=== PATIENT | male | born 1985 | race Caucasian/White ===

== ENCOUNTER 2016-10-23 13:02 | Emergency (ER) | payer OTHER ==
[~2016-10-23] VITALS: Ht 188 cm; Wt 113.4 kg
[~2016-10-23 13:02] MED LIST: BENADRYL25 MG PO; CLEOCIN HCL150 MG PO; DAYPRO600 MG PO; DAYQUIL SEVERE PO; EPIPEN1 EA INJ; EXCEDRIN EXTRA1 EAC1 PO; LACTAID3000 UNIT PO; MELATONIN5 M2 PO; NAPROSYN500 MG PO; PREDNISONE20 MG PO; PROVENTIL HFA6.7 GM INH; SEPTRA DS TABL1 EACH PO; TRAMADOL HCL50 MG PO; TUMS200 MG PO; ZITHROMAX250 MG PO
[2016-10-23] MEDS ORDERED: EPIPEN 2-P0.3 MG/0.3 IM ×2 (13:09→14:54)
== END 2016-10-23 15:04 | disposition home or self-care (01) ==
LOC: ED 13:02
DX: T63.441A Toxic effect of venom of bees, accidental (unintentional), initial encounter (principal); F43.10 Post-traumatic stress disorder, unspecified; F31.9 Bipolar disorder, unspecified; G40.909 Epilepsy, unspecified, not intractable, without status epilepticus; F17.200 Nicotine dependence, unspecified, uncomplicated; Z88.0 Allergy status to penicillin; Z91.018 Allergy to other foods; Z91.012 Allergy to eggs; Z91.030 Bee allergy status; Z79.899 Other long term (current) drug therapy
CPT/HCPCS: 99283

== ENCOUNTER 2020-05-24 10:07 | Emergency (ER) | payer OTHER ==
[~2020-05-24] VITALS: Ht 188 cm; Wt 113.4 kg
[~2020-05-24 10:07] MED LIST changes: +EPIPEN 2-P0.3 MG/0.3 IM; +GLUCOPHAGE500 MG PO; +IBU600 MG PO; +LISINOPRIL10 MG PO; +NORCO 5-325 TA1 EACH PO; +TRAZODONE HCL100 MG PO; +TRAZODONE HCL300 MG PO
[2020-05-24] MEDS ORDERED: METFORMIN HCL500 M1 PO (12:28)
[2020-05-24] MEDS ORDERED: VENTOLIN HFA18 GM INH (12:59)
[2020-05-24] MEDS ORDERED: CEPHALEXIN500 M1 PO (12:59)
== END 2020-05-24 13:27 | disposition home or self-care (01) ==
LOC: ED 10:07
DX: L03.116 Cellulitis of left lower limb (principal); G47.30 Sleep apnea, unspecified; G43.909 Migraine, unspecified, not intractable, without status migrainosus; E11.9 Type 2 diabetes mellitus without complications; F17.200 Nicotine dependence, unspecified, uncomplicated; Z88.0 Allergy status to penicillin; Z91.012 Allergy to eggs; Z88.8 Allergy status to other drugs, medicaments and biological substances; Z91.018 Allergy to other foods; Z91.030 Bee allergy status; Z79.899 Other long term (current) drug therapy; Z79.84 Long term (current) use of oral hypoglycemic drugs
CPT/HCPCS: 73590; 80053; 83036; 83605; 85025; 87070; 87205; 94640; 96365; 99283-25; J0696

== ENCOUNTER 2020-09-07 20:19 | Emergency (ER) | payer OTHER ==
[~2020-09-07] VITALS: Ht 188 cm; Wt 185.1 kg
[~2020-09-07 20:19] MED LIST changes: +CEPHALEXIN500 M1 PO; +METFORMIN HCL500 M1 PO; +VENTOLIN HFA18 GM INH
[2020-09-07] MEDS ORDERED: LISINOPRIL-HCT1 EAC1 PO (20:39)
[2020-09-07] MEDS ORDERED: ALBUTEROL2.5 MG/3 M INH (23:14)
[2020-09-07] MEDS ORDERED: FUROSEMIDE40 MG PO (23:14)
[2020-09-07] MEDS ORDERED: CEPHALEXIN500 MG PO (23:14)
--- NOTE | 2020-09-09 11:31 | EKG ---
[facility] [address] [place] [address] Signed Normal sinus rhythm Left posterior fascicular block Abnormal ECG When compared with ECG of 12-APR-2019 15:00, No significant change was found Confirmed by NATO CARR MD ([id number]) on 09/09/2020 11:31:07 AM Electronically Signed By: NATO CARR MD 09/09/20 1131 PATIENT NAME: WESTON CAZARES Electrocardiogram DATE OF : 83 PHYSICIAN: NATO CARR MD REPORT #: [id number] REPORT IS CONFIDENTIAL AND NOT TO BE RELEASED WITHOUT AUTHORIZATION
== END 2020-09-07 23:40 | disposition home or self-care (01) ==
LOC: ED 20:19
DX: N49.2 Inflammatory disorders of scrotum (principal); J44.9 Chronic obstructive pulmonary disease, unspecified; Z20.822 Contact with and (suspected) exposure to COVID-19; G43.909 Migraine, unspecified, not intractable, without status migrainosus; E11.9 Type 2 diabetes mellitus without complications; G47.30 Sleep apnea, unspecified; F17.200 Nicotine dependence, unspecified, uncomplicated; Z88.0 Allergy status to penicillin; Z88.8 Allergy status to other drugs, medicaments and biological substances; Z91.030 Bee allergy status; Z91.018 Allergy to other foods; Z91.012 Allergy to eggs; Z79.899 Other long term (current) drug therapy; Z79.84 Long term (current) use of oral hypoglycemic drugs
CPT/HCPCS: 36600; 71045; 76870; 80053; 82803; 83880; 85025; 93005; 93010; 94660; 96374; 96375; 99285-25; C9803; J1940; J2405; J2930; U0003

== ENCOUNTER 2020-09-08 22:46 | Inpatient (IN) | payer OTHER ==
[~2020-09-08] VITALS: Ht 188 cm; Wt 184.2 kg
[~2020-09-08 22:46] MED LIST changes: +ALBUTEROL2.5 MG/3 M INH; +CEPHALEXIN500 MG PO; +FUROSEMIDE40 MG PO; +LISINOPRIL-HCT1 EAC1 PO
--- OUTSIDE RECORDS SUMMARY | 2020-09-08 22:52 | XMS ---
PreManage Notification: WESTON CAZARES Security Arborist Climber Events No recent Security Events currently on file CRITERIA MET - [facility] - 2 Visits in 30 Days CARE PROVIDERS There are no care providers on record at this time. Ajay has no Care Guidelines for this patient. [place] VISIT COUNT (12 MO[address] [facility] T[facility] NOTE: Visits indicate total known visits. ED/C VISIT TRACKING (12 MO.) [facility] COMPLAINT: - SWOLLEN SCROTUM, SHORTNESS OF BREATH 09/07/2020 20:21 [facility] [place] TYPE: Emergency COMPLAINT: - SWOLLEN SCROTUM 05/24/2020 10:08 [facility] [place] TYPE: Emergency COMPLAINT: - L LEG WOUND DIAGNOSES: - Allergy status to other drugs, medicaments and biological substances - Bee allergy status - buttermaker (current) use of oral hypoglycemic drugs - Type 2 diabetes mellitus without complications - Allergy to other foods - Other terminal gauger (current) drug therapy - Sleep apnea, unspecified - Cellulitis of left lower limb - Nicotine dependence, unspecified, uncomplicated - Allergy status to penicillin - Allergy to eggs - Migraine, unspecified, not intractable, without status migrainosus INPATIENT VISIT TRACKING (12 MO.) No inpatient visits to display in this time frame [email or web address]
--- NOTE | 2020-09-09 03:00 | NUR ---
PATIENT ARRIVED TO THE UNIT. PATIENT OBTUNDED, UNABLE TO WAKE TO MOVE TO BED. ON BIPAP. MOVED WITH 4 PERSON ASSIST. PATIENT WOKE AND REQUIRED THE URNAL. ASSISTED PATIENT TO EDGE OF BED AND PATIENT STOOD WHILE RN HELD URNAL. PATIENT VOIDED 800MLS. PATIENT RETURNED TO BED. HEAVY BREATHING AND DIFFICULTY SPEAKING. PLACED BACK ON BIPAP. PATIENT WROTE ON PAPER REQUESTING HIS GIRLFRIEND BE UPDATED. PATIENT IN BED, HOB ELEVATED. ON BIPAP 20/12 WITH 50% Fi02. REQUIRED INCREASED TO 60% Fi02 TO MAINTAIN O2 SAT GREATER OF 90%. PATIENT HAS DIMINISHED BREATH SOUNDS THROUGHOUT AND A DRY COUGH. IV ABX STARTED PER ORDER, SITE WNL.
--- NOTE | 2020-09-09 04:30 | NUR ---
DRESSING ON RIGHT LOWER LEG IS HEAVILY SOILED. REMOVED DRESSING. LOOSE SKIN, DIRT AND DRAINAGE NOTED OVER MOST OF THE LOWER LEG. AREAS CLEANED WELL WITH SOAP AND WATER THEN WOUND SUPERVISOR FRUIT GRADING. PICTURES TAKEN. XEROFORM GAUZED PLACED OVER OPEN AREAS. WRAPPED LOWER LEG IN GAUZE AND MILES WRAP. LEFT LOVER LEG HAS OLD SCARRING AND SCABS, NOTHING OPEN. AREA CLEANED WELL. LOTION APPLIED. BOTH FEET HAVE EXTENSIVE CALLUSES AND DRY CRACKED SKIN. BOTH LEGS ELEVATED ON PILLOWS. PATIENT TOLERATING BIPAP. WAKES BRIEFLY TO USE URNAL. VOIDS 900 MLS.
--- NOTE | 2020-09-09 06:30 | NUR ---
PATIENT AWAKE. UP TO THE BEDSIDE. PATIENT REQUIRES REORIENTATION BUT IS ALERT. PATIENT HAS A CONGESTED SOUNDING COUGH AND HAS TROUBLE CATCHING HIS BREATH ON 4L NC. PATIENT HAS MANY QUESTIONS ABOUT HIS ADMISSION, ANSWERED TO BEST OF ABILITY AND REFERED QUESTIONS TO MD WHEN HE ROUNDS. PATIENT UP TO THE BATHROOM TO VOID. TOLERATES AMBULATING WITH O2 IN PLACE. PATIENT SITTING BACK AT BEDSIDE LOOKING AT BREAKFAST ORDER.
[2020-09-09] MEDS ORDERED: CEPHALEXIN500 MG PO (07:15)
[2020-09-09] MEDS ORDERED: PREDNISONE20 MG PO (07:19)
[2020-09-09] MEDS ORDERED: MOBIC7.5 MG PO (07:22)
--- NOTE | 2020-09-09 07:30 | NUR ---
REPORT RECIEVED. PATIENT IS SITTING AT BEDSIDE.
--- NOTE | 2020-09-09 08:00 | NUR ---
ASSESSMENT DONE. TALKED WITH PATIENT ABOUT POC FOR DAY AND TREATMENTS. PATIENT WITH MANY QUESTIONS. IN TALKING WITH PATIENT, PATIENT WITH TEARS IN EYES. IS CALM, IS TALKING ABOUT WHENN HE WILL BE DISCHARGED. PATIENT NEEDS MUCH EDUCATION AND EMOTIONAL SUPPORT. HAS OCC HARSH NON-PRODUCTIVE COUGH. O2 AT [address]
--- NOTE | 2020-09-09 08:30 | NUR ---
SAT AT BEDSIDE TO TAKE 100% OF BREAKFAST. PATIENT IS COOPERTIVE, IS ABLE TO ANSWERE QUESTIONS W/O DELAY.
--- NOTE | 2020-09-09 09:00 | NUR ---
DR. CARR HERE TO SEE PATIENT. ORDERES RECIEVED. SCROTUM ELEVATED FOR PATIENT COMFORT. BIPAP APPLIED AT 50% FIO2 PRESSURES 20/12.
--- NOTE | 2020-09-09 10:00 | NUR ---
WILIAM KUMAR PER LAB.
--- NOTE | 2020-09-09 10:30 | NUR ---
VBG RESULTS PH-7.49, CO2-49, O2-134. DR. LILLY NOE,
--- NOTE | 2020-09-09 10:40 | NUR ---
BIPAP PRESSURES CHANGED TO 14/7, 40% FIO2.
--- NOTE | 2020-09-09 11:16 | NUR ---
SAT AT BEDSIDE TO VOID 700 ML OF CLEAR YELLOW URINE. RR-32 WITH EXERTION. TALKED WITH PATIENT ABOUT FLUID RESTRICTION OF 1800 CC PER 24 HOUR PERIOD.
--- NOTE | 2020-09-09 12:00 | NUR ---
assessment done. MOVING AIR BETTER. CONTINUES WITH OCC HARSH COUGH. WHEN WAKES WANTS BIPAP OFF THEN TO O2 AT 4 L NC. PATIENT STATES HE FEELS BETTER. TALKED WITH PATIENT ABOUT HOW NECESSAY BIPAP IS FOR HIS HEALTH. IS TALKATIVE AND COOPERATIVE.
--- NOTE | 2020-09-09 12:30 | NUR ---
SAT AT BEDSIDE TO TAKE 100% OF LUNCH. ACCUCHECK PRIOR TO LUNC-255. HUMALOG INSULIN 5 UNITS SQ GIVEN.
--- NOTE | 2020-09-09 13:00 | NUR ---
BIPAP ON, IS SLEEPING. 02 SAT DOWN TO 85, FIO2 INCREASED TO 50 FROM 40.
--- NOTE | 2020-09-09 14:45 | NUR ---
AWAKE, O2 TO NC AT 4 LITERS. AMBULATED TO SHOWER (RM 126) FROM RM 128. TOLERATED AMBULATION WELL, REMAINS ON O2 AT 4 L WITH AMBULATION. ASSISTED PATIENT WITH SHOWER.
--- NOTE | 2020-09-09 15:20 | NUR ---
TOLERATED SHOWER WELL. BACK TO ROOM W/O INCIDENT. LOION APPLIED TO LEGS, ELBOWS.
--- NOTE | 2020-09-09 17:10 | NUR ---
ASLEEP ON BIPAP. DIDN'T AWAKEN WHEN ACCUCHECK ONE. ACCUCHECK-141, 1 UNIT HUMALOG INSULIN SQ GIVEN.
--- NOTE | 2020-09-09 18:02 | NUR ---
REMAINS ASLEEP ON BIPAP. DINNER HAS BEEN AT BEDSIDE.
--- NOTE | 2020-09-09 19:19 | NUR ---
PATIENT TOOK DINNER WELL. IS SITTNIG AT BEDSIDE. NO CHANGES. REPORT TO NEXT SHIFT.
--- NOTE | 2020-09-09 19:56 | NUR ---
PATIENT REPORTING ITCHING IN HIS PANIS AND GROIN AREA. POWDER APPLIED TO AREA WITHOUT RELIEF. PATIENT REQUESTING BENADRYL. NOTIFIED.
--- NOTE | 2020-09-09 20:00 | NUR ---
PATIENT IS AAOX4. SITTING AT EDGE OF BED. LUNG SOUNDS HAVE EXPIRTORY WHEEZES IN LILIBETH UPPER LOBES. DIMINSIHED IN BASES. PATIENT HAS CONGESTED COUGH. USING CPT & IS. IV SITE WNL. VS STABLE. TOELRATING 4L NC. PM CARES DONE BY PATIENT. PATIENT INTO THE BED. LEGS ELEVATED. MINIMAL SWELLING NOTED. WOUNDS OPEN TO AIR. PATIENT CONTINUES TO REPORT ITCHING IN GROIN. AREA IS SLIGHTLY RED. SKIN INTACT. ENCOURAGED PATIENT TO BE CAREFUL AND RESIST ITCHING MUCH POSSIBLE. PATIENT HAS CALL LIGHT IN REACH. HOB ELEVATED.
--- NOTE | 2020-09-09 22:00 | NUR ---
PATIENT SLEEPING OSUNDLY ON BIPAP. DESATS TO LOW 80% AND VT 40'S. PATIENT DIFFICULT TO WAKE. MOVED UP IN BED FOR BETTER POSITIONING. PATIENT THEN STARTLED AWAKE. O2 SATS IMPROVED AND PATIENT WAS UP TO VOID. PATIENT THEN RETURNED TO BED AND SOON STARTED TO DESAT AGAIN TO THE 80'S ON BIPAP 31/10 50% Fi02. RT CALLED.
--- NOTE | 2020-09-09 22:37 | NUR ---
RT DISCUSSED WITH AND REPORTS CHANGES TO CPAP AT 16 WITH 40% Fi02.
--- NOTE | 2020-09-10 00:19 | NUR ---
PATIENT SLEEPING SOUNDLY. VS STABLE. TOLERATING CPA 16 WITH 40% Fi02 WITHOUT DESATING OR LOW VT. IN-LINE NEB PROVIDED BY RT.
--- NOTE | 2020-09-10 03:10 | NUR ---
SITTING AT EDGE OF BED. VOIDED 300ML CLEAR ORANGE URINE. ASKING FOR SNACK, GIVEN SUGAR FREE JELLO, COTTAGE CHEESE AND CRACKERS..
--- NOTE | 2020-09-10 03:22 | NUR ---
READY TO LAY BACK DOWN. PT INDICATED R LOWER LEG IS STINGING WHERE THERE IS OPEN AREAS, INFORMED THAT WAS NOT UNEXPECTED. READY FOR SLEEP, BACK ON BIPAP.
--- NOTE | 2020-09-10 04:30 | NUR ---
PATIENT CONTINUES TO DESAT OCCATIONALLY ON CPAP AT 16 WITH 40% Fi02. ASSISTED RT TO REPOSITION PATIENT WHICH REDUCED THE OCCURANCE. VS STABLE.
--- NOTE | 2020-09-10 06:46 | NUR ---
ABG DRAWN PER PROTOCOL AND ORDERS. pt TOLERATED WELL.
--- NOTE | 2020-09-10 07:05 | NUR ---
DISCUSSED ABG FINDINGS WITH RT AND . NO CHANGES ORDERED.
--- NOTE | 2020-09-10 07:37 | NUR ---
REPORT RECIEVED. PATIENT IS ASLEEP ON CPAP, FIO2-40 PRESSURE-16. NO DISTRESS NOTED.
--- NOTE | 2020-09-10 07:44 | NUR ---
WOKE FOR ASSESSMENT. PATIENT DENIES PAIN. O2 AT 4 L APPLIED.
--- NOTE | 2020-09-10 08:00 | NUR ---
NEB TREATMENT GIVEN PER RT. WEIGHT DONE VIA STANDING SCALE. SITTING UP TO TAKE BREAKFAST. ACCUCHECK 101.
--- NOTE | 2020-09-10 09:00 | NUR ---
PER DR. CARR HE WOULD LIKE PATIENT TO HAVE TRILOGY UNIT IF POSSIBLE BEFORE DISCHARGE. FACE SHEET, H&P AND LABS FAXED TO [facility] FOR REVIEW.
--- NOTE | 2020-09-10 09:21 | NUR ---
THIS RN INTO SEE PATIENT, PATIENT SITTING UP AT BEDSIDE USING THE IS. PATIENT STATES HE LIVES IN AN APARTMENT WITH HIS SIGNIFICANT OTHER SAMUEL CARDONA AND THEIR SON. PATIENT STATES HE HAS 2 STEPS LEADING INTO THE APARTMENT WITH SIDE RAILS. PATIENT DOES USE A CANE FOR STABILITY. HE STATES HE DOES NOT NORMALLY REQUIRE CONSTANT HOME 02 BUT HAS BEEN BORROWING HIS MOTHERS PORTABLE 02 TANK SINCE THE ONSET OF HIS SHOB. 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 PATIENT STATES THAT DUE TO BEING THE PRMARY CAREGIVER AND THE COST OF DAYCARE FOR HIS CHILD HE IS OFTEN UNABLE TO MAKE IN TO MEDICAL APPOINTMENTS. JETTING MACHINE OPERATOR INTO ROOM FOR STUDY, WILL FOLLOW UP WITH PATIENT.
--- NOTE | 2020-09-10 09:34 | NUR ---
PATIENT CALLED, SCROTUM IS ITCHY AND HE HAS BEEN ITCHING IT AND HAD SOME BLOOD. SMALL IRRITATED SPOT ON SCROTUM WITH A LIITLE BIT OF BLOOD, RN NOTIFIED. WIPE GIVEN TO CLEAN. CALL LIGHT IN REACH. NO FURTHER NEEDS AT THIS TIME.
--- NOTE | 2020-09-10 12:07 | NUR ---
SITTING AT BEDSIDE. ASSESSMENT DONE. MONITOR DC'D, PATIENT WILL BE TRANSFERRED TO MED-SURG THIS AFTERNOON.ACCUCHECK 126, NO INSULIN. PATIENT HAS BEEN USING I.S. AND ACEPELLA FREQUENTLY. HAS HARSH COUGH. O2 REMAINS A 4L NC. USED CPAP ONCE THIS AM BETWEEN [phone].
--- NOTE | 2020-09-10 13:15 | NUR ---
AMBULATING IN HALLWAY ACCOMP BY RN. TOLERATING AMBULATION WELL. O2 AT [address]
--- NOTE | 2020-09-10 13:35 | NUR ---
CALL LIGHT ANSWERED. PT REQUESTS PRN NICOTINE LOZENGE WHICH IS PROVIDED AT THIS TIME. RT DEX IN ROOM THIS NURSE LEAVES ROOM. CALL LIGHT WITHIN REACH.
--- NOTE | 2020-09-10 14:20 | NUR ---
TRANSFERRED TO M/S. AMBULATED TO ROOM 115 WITH O2 A 4 L. TOLERATING AMBULATION WELL. REPORT GIVEN VIA PHONE EARLIER.
--- NOTE | 2020-09-10 14:20 | NUR ---
PT ARRIVED TO FLOOR VIA AMBULATION. PT APPEARS TO BE SHORT OF BREATH BUT DENIES THE FEELING OF SHORTNESS OF BREATH. PT STANDING UP IN ROOM. PT TO SIT IN CHAIR TO COMPLETE VITALS
--- NOTE | 2020-09-10 14:37 | NUR ---
RECEIVED CALL FROM [facility] GODDARD WHO STATES THEY ARE PROCESSING REQUEST FOR TRILOGY. QUESTIONS ANSWERED. SHE WILL FAX FORM FOR DR CARR THIS AFTERNOON OR IN MORNING. DR CARR UPDATED.
--- NOTE | 2020-09-10 15:47 | NUR ---
CHECKED ON PATIENT EMPTIED URINAL. PATIENT ASKED ABOUT ECHO NO RESULTS. NOTHING ELSE NEEDED AT THIS TIME
--- NOTE | 2020-09-10 16:35 | NUR ---
PATIENT VISITING WITH FAMILY. URINAL EMPTIED. NOTHING NEEDED AT THIS TIME
--- NOTE | 2020-09-10 16:45 | NUR ---
THIS RN IN PTS ROOM TO GIVE PT HIS EVENING MEDS. PT SITTING IN BED. PT STATES THAT HE HAS CONCERNS ABOUT THE COLOR OF HIS LEGS. THIS RN NOTED THE COLOR AND FROM REPORT FROM ASHLEY DUNBAR, DOES NOT APPEAR TO BE CHANGES, THIS RN EDUCATED PT ABOUT HOW CHRONIC SWELLING IN LEGS AND FROM DIABETES. PT DISCUSSED WIHT THIS RN HOW HE ALIYAH WITH HIS PTSD. WHEN PT IS ASKED ABOUT WHAT HIS PTSD IS FROM PT STARTED DISCUSSING WITH THIS RN. THIS RN EDUCATED PT ABOUT ADVERSE CHILDHOOD EXPERIENCES- TRAUMA AND COMORBIDITIES. PT STATES THAT HE DOESN'T FEEL READY TO OPEN UP TO A COUNSELOR YET
--- NOTE | 2020-09-10 18:43 | NUR ---
PATIENT SITTING ON SIDE OF BED VISITING WITH FAMILY. PATIENTS VS AND I&O'S ARE CHARTED. CALL LIGHT IN REACH AND NOTHING ELSE NEEDED AT THIS TIME
--- NOTE | 2020-09-10 19:05 | NUR ---
RECEIVED REPORT FROM BETTINA RAMOS.
--- NOTE | 2020-09-10 19:30 | NUR ---
CALL LIGHT ON. ANA DUNBAR IN ROOM TO ASSIST.
--- NOTE | 2020-09-10 21:00 | NUR ---
IN TO DO ASSESSMENT. PROVIDED pt WITH PROTEIN PACK. ASSESSMENT DONE. DESENEX APPLIED TO SCROTOM. CPAP SET UP FOR pt. NEB DONE. pt REPORTED IMPROVEMENT IN BREATHING POST NEB. EXPIRATORY WHEEZES IN BASES. EDUCATION DONE ON FLUID RESTRICTION. ALL QUESTIONS ANSWERED. MEDICATIONS GIVEN (SEE MAR). pt WOULD LIKE TO KEEP NICOTINE PATCH ON, EDUCATION DONE. CALL LIGHT WITHIN REACH.
--- NOTE | 2020-09-10 22:46 | NUR ---
ROUNDED ON pt. WOKE TO VOICE. pt USING CPAP. ASSISTED TO REPOSITION FOR COMFORT. NO OTHER REQUESTS AT THIS TIME. CALL LIGHT WITHIN REACH.
--- NOTE | 2020-09-11 00:50 | NUR ---
pt RESTING ON CPAP. IV INFUSION STARTED PER ORDERS. CALL LIGHT WITHIN REACH.
--- NOTE | 2020-09-11 01:59 | NUR ---
ROUNDED ON pt. NOTED INFLAMMATION TO IV SITE. UNABLE TO GET BLOOD RETURN. IV DC'D. NEW IV STARTED. pt TOLERATED WELL. ON CPAP. IV INFUSING. WILL MONITOR OLD IV SITE. CALL LIGHT WITHIN REACH.
--- NOTE | 2020-09-11 02:52 | NUR ---
IV ANTIBIOTIC INFUSION COMPLETED. SL. pt CONTINUES TO REST ON CPAP. REDNESS AT OLD IV SITE RAC, DECREASING. CALL LIGHT WITHIN REACH.
--- NOTE | 2020-09-11 05:00 | NUR ---
IN TO DO ASSESSMENT. LABS DRAWN. LUNGS ASSESSED. CLEAR IN THE UPPERS, DIM IN BASES. LEGS UNCHANGED FROM PRIOR ASSESSMENT. CALL LIGHT WITHIN REACH. pt RESTING ON CPAP.
--- NOTE | 2020-09-11 07:44 | NUR ---
PT SLEEPING SOUNDLY AT TIME OF SHIFT EXCHANGE, CPAP IN PLACE.
--- NOTE | 2020-09-11 10:30 | NUR ---
Spoke with pt and updated he has free transport to all medical and dental appts. Discussed need for child health associate, pt states he usually drops his son at his mom when he drives himself to his appts. We discussed his works at [employer] and shift usually ends close to 3 pm. Suggested he make all his appts for after 3 pm for now on. We are cont. to await brianne for his Trilogy. I called and spoke with Susie at [facility] and they are awaiting auth from [facility].
--- NOTE | 2020-09-11 11:31 | NUR ---
PT 02 TURNED TO 2LPM SATS REMAIN AROUND 90% ON NC. PT UP TO AMBULATE THE HALLS SATS DIP TO 85% ON ROOM AIR WITH ACTIVITY, RECOVERS QUICKLY TO 88-89% WHILE WALKING. RETURNS TO ROOM AT REST SATS INCREASE TO 94% BEST SATS OF THE DAY. PT REMAINS ON R/A AT THIS TIME. PULSE OX IN PLACE PT VERBALIZES UNDERSTANDING THAT IF SATS DIP BELOW 88% CONSISTANTLY 02 WILL NEED TO BE REPLACED. TO THE SHOWER NOW
--- NOTE | 2020-09-11 13:15 | NUR ---
RECEIVED REPORT FROM DAY SHIFT RN. PATIENT IS RESTING IN COUCH. NO NEEDS NOTED. CALL LIGHT IN REACH.
--- NOTE | 2020-09-11 14:52 | NUR ---
PT SITTING IN CHAIR, TV ON. SITS IN FRONT OF CHAIR, O2 NC IN USE. PT WILL PAUSE SOMETIMES WHEN TRYING TO GIVE AN ANSWER TO QUESTION. PT SAID HE HAS QUESTIONS REGARDING HIS CARE BUT CAN'T REMEMBER THEM. PT EXPRESSED SOME FRUSTRATION AT NOT BEING DC'D YET. GAVE G.POST AND ENCOURAGEMENT TO PT. WILL CHECK BACK, AND FOLLOW NEEDED
--- NOTE | 2020-09-11 14:52 | NUR ---
PATIENTS SCHEDULED MEDICATIONS GIVEN PER ORDER. PATIENT PLACE DON 1L VIA NC. PATIENT IS RESTING IN RECLINER AFTER AMBULATING TO THE RESTROOM. PATIENTS OXYGEN SATURATION IS 84%. AFTER PLACING PATIENT ON 1L. PATIENTS OXYGEN SATURATION RETURNED TO 93%. PATIENT DENIES ANY SOB. PATIENT DENIES ANY FURTHER NEEDS. CALL LIGHT IN REACH. PATIENT HAD X1BM.
--- NOTE | 2020-09-11 15:13 | NUR ---
PATIENT IS RESTING ON COUCH. PATIENTS IV ABX INFUSING PER ORDER. PATIENT REMAINS ON 2L VIA NC. PATIENT DENIES ANY SOB. RT IN ROOM FOR TX. NO FURTHER NEEDS NOTED. CALL LIGHT IN REACH.
--- NOTE | 2020-09-11 16:16 | NUR ---
Received call from Lin at [facility]. They have authed Trilogy unit and notified Rachel. Called Rachel and auth was received from [facility], but their dept has not completed auth. Unit will be delivered tomrrow. Notified Dr. Avalos and also asked about when he would liek 02 qualifier, he would prefer it tomorrow am.
--- NOTE | 2020-09-11 17:18 | NUR ---
report recieved from kody turner. pt just finished walking in halls with her. tolerated well.
--- NOTE | 2020-09-11 19:40 | NUR ---
REPORT RECEIVED FROM DAY SHIFT RN. PT SITTING ON COUCH WITH FEET ELEVATED. ALERT AND ORIENTED. DENIES NEEDS AT THIS TIME. WHITE BOARD UPDATED. CALL LIGHT IN REACH.
--- NOTE | 2020-09-11 21:15 | NUR ---
EVENING ASSESSMENT COMPLETE. SCHEDULED MEDS ADMINISTERED PER EMAR. PRN ADMINISTERED FOR C/O RLE ITCHING. RLE PRINCESS WITH OPEN AREAS ON IN THE INSIDE AND OUTSIDE NEAR THE ANKLE FROM ITCHING. AREA CLEANSED AND MOISTURIZING CREAM APPLIED. PT ENCOURAGED TO NOT ITCH AREAS, STATES "I JUST CAN'T HELP IT". EDUCATION PROVIDED. PT ON RA. SpO2 89-92%. INCREASED RR WITH MOVEMENT NOTED. PT DENIES SOB. NO C/O PAIN OR NAUSEA. LOW CARB/LOW SODIUM SNACK PROVIDED. PT DENIES QUESTIONS OR CONCERNS. RT IN ROOM FOR BREATHING TX.
--- NOTE | 2020-09-11 23:35 | NUR ---
PRN FOR PAIN ADMINISTERED PER REQUEST. ASSISTED PT TO REPOSITION IN BED. DENIES FURTHER NEEDS. CALL LIGHT IN REACH.
--- NOTE | 2020-09-11 23:40 | NUR ---
PT RESTING IN BED WITH EYES CLOSED. CPAP IN PLACE. SpO2 90%. RESPIRATIONS EVEN. CALL LIGHT IN REACH.
--- NOTE | 2020-09-12 00:37 | NUR ---
IV ABX INFUSING ORDERED. ASSISTED TO ADJUST CPAP FACE MASK. SpO2 98%. HR 80'S.
--- NOTE | 2020-09-12 02:13 | NUR ---
IV ABX COMPLETE. PT RESTING IN BED WITH EYES CLOSED. CPAP IN PLACE. CpO2 98%. HR 80'S.
--- NOTE | 2020-09-12 06:46 | NUR ---
VS AND I&O COMPLETE. DAILY WEIGHT OBTAINED. PT ITCHING GROIN AREA AND BILAT LEGS. PRN FOR ITCHING ADMINISTERED PER EMAR. OFF CPAP AT THIS TIME. RA SpO2 94%. DENIES PAIN OR SOB. NO FURTHER NEEDS AT THIS TIME. CALL LIGHT IN REACH.
--- NOTE | 2020-09-12 07:35 | NUR ---
this rn received report from katt gates. pt sitting up in bed and sats are 87% on room air with a decent waveform, pt scotted up in bed with staff entered and o2 came up to mid 90's. appears low sats were due to body position. pt states that he needs nothing at this time.
[2020-09-12] MEDS ORDERED: NICOTINE1 EAC2 TD (10:00)
[2020-09-12] MEDS ORDERED: FUROSEMIDE40 MG PO (10:01)
[2020-09-12] MEDS ORDERED: POTASSIUM CHLO20 ME1 PO (10:02)
[2020-09-12] MEDS ORDERED: DOXYCYCLINE HY100 MG PO (10:03)
--- NOTE | 2020-09-12 10:48 | NUR ---
PT WAS LAYING IN BED. MORNING ASSESSMENT COMPLETED. PT LUNG SOUNDS WERE CLEAR NO SOB STATED. PT CURRENTLY ON ROOM AIR. PT BOWEL TONES WERE ACTIVE. PT STATES NO NUMBNESS OR TINGLING IN EXTREMITES. LEGS WERE PRINCESS BUT NOT PAINFUL TO THE TOUCH. PT STATED 0/10 PAIN AT THIS TIME. PT STATED MULTIPLE TIMES HE IS READY TO GO HOME. DISCHARGE ORDERS ARE NOW IN PLACE. MORNING MEDICATIONS GIVEN. SEE EMAR. NO FURTHER NEEDS AT THIS TIME.
--- NOTE | 2020-09-12 10:54 | NUR ---
PT IS SALINE LOCKED AND UP WALKING IN THE HALLS.
--- NOTE | 2020-09-12 12:10 | NUR ---
MET WITH PATIENT IN HIS ROOM TO DISCUSS A LOW-SODIUM DIET. PATIENT IS INTERESTED IN LEARNING AND READ OVER THE HANDOUTS WHILE I WAS IN THE ROOM. HE ASKED A LOT OF QUESTIONS. HE DOES MOST OF THE COOKING AT HOME. HE DOES NOT CURRENTLY FOLLOW A SPECIAL DIET. HE STATES HIS BLOOD SUGARS HAVE BEEN GOOD. HE USED TO EAT ONLY ONCE A DAY, NOW HE IS EATING MORE FREQUENTLY. HE TRIED HUMMUS FOR THE FIRST TIME HERE AND LIKE IT, BUT NOTED THE SODIUM CONTENT ON THE PACKAGE. I EXPLAINED IT IS RECOMMENDED HE KEEP HIS SODIUM INTAKE TO 2,000 MG OR LESS PER DAY - THIS INCLUDES WHAT IS IN FOODS AND WHAT IS ADDED TO FOODS. MOST OF OUR SODIUM INTAKE COMES FROM PACKAGED FOODS. HE DOES EAT PACKAGED FOODS AND HAS BEEN THINKING ABOUT COOKING MORE AT HOME BUT HASN'T FELT REALLY GOOD ENOUGH TO DO SO. NOW THAT HE HAS A LIST OF FOODS RECOMMENDED, ALONG WITH A LOW-SODIUM SNACK LIST, HE HAS A BETTER IDEA OF HOW TO EAT HEALTHIER. HE LIKES TO USE CREAM CHEESE IN COOKING. I SAID THAT IS FINE IN SMALL AMOUNTS. HE ASKED ABOUT RAISIN BRAN AND I SAID IT DOES HAVE SODIUM IN IT SO STICK TO 1 CUP ONLY. I SAID FRUITS AND VEGGIES DO NOT CONTAIN SODIUM SO MAKE SURE YOU HAVE PLENTY OF THESE TO EAT. HE CAN LOOK FOR NO SALT ADDED VERSIONS OF CANNED VEGGIES OR LOW-SODIUM BEANS, OR USE FROZEN VEGGIES WITH NO SALT WELL. ALSO GAVE HIM A LIST OF LOW-SODIUM COOK BOOKS AND WEBSITES RESOURCES. I CAN WORK WITH HIM AN OUTPATIENT FOR WEIGHT AND DIABETES MANAGEMENT WHILE FOLLOWING A LOW-SODIUM DIET. HIS PCP WOULD HAVE TO REFER HIM. HIS PCP IS DR. FITZGERALD. HE SAID THAT IS GOOD TO KNOW. HE WOULD BENEFIT FROM REINFORCEMENT AND MORE EDUCATION.
--- NOTE | 2020-09-12 12:22 | NUR ---
PT DISCHARGE EDUCATION COMPLETED WITH THE PATIENT. PT WAS EDUCATED ON HYPERTENSION AND SLEEP APNEA. ALL OF THE PATIENTS QUESTIONS WERE ANSWERED. IV DC. TIP OF THE IV WAS INTACT. PT FINISHING UP LUNCH AND HIS RIDE WILL BE HERE ABOUT 1300. NO FURTHER NEEDS AT THIS TIME.
--- NOTE | 2020-09-12 12:48 | NUR ---
PT SCHEDULED TO DC TODAY, TRIED TO VISIT-LOTS OF STAFF INVOLVED. UNABLE TO VISIT, WILL TRY AGAIN
== END 2020-09-12 12:48 | disposition home or self-care (01) | DRG 205 ==
LOC: ED 22:46 → CCU 22:47 → MS 09-09 09:00 → CCU 09-09 09:01 → MS 09-10 14:20
PROVIDERS: ADMIT Internal Medicine; ATTEND Internal Medicine
PROC: 5A09357 Assistance with Respiratory Ventilation, Less than 24 Consecutive Hours, Continuous Positive Airway Pressure (ICD-10-PCS; principal; 2020-09-09)
DX: E66.2 Morbid (severe) obesity with alveolar hypoventilation (principal); J96.21 Acute and chronic respiratory failure with hypoxia; J96.22 Acute and chronic respiratory failure with hypercapnia; Z68.43 Body mass index [BMI] 50.0-59.9, adult; I50.32 Chronic diastolic (congestive) heart failure; E87.2 Acidosis; J44.9 Chronic obstructive pulmonary disease, unspecified; F43.10 Post-traumatic stress disorder, unspecified; F90.9 Attention-deficit hyperactivity disorder, unspecified type; F17.210 Nicotine dependence, cigarettes, uncomplicated; E11.9 Type 2 diabetes mellitus without complications; F41.8 Other specified anxiety disorders; I11.0 Hypertensive heart disease with heart failure; I27.81 Cor pulmonale (chronic); I27.29 Other secondary pulmonary hypertension; I51.7 Cardiomegaly; N49.2 Inflammatory disorders of scrotum; I87.2 Venous insufficiency (chronic) (peripheral); Z88.0 Allergy status to penicillin; Z79.899 Other long term (current) drug therapy; Z79.84 Long term (current) use of oral hypoglycemic drugs; Z79.1 Long term (current) use of non-steroidal anti-inflammatories (NSAID)
CPT/HCPCS: 36415; 36600; 71045; 80048; 80053; 80202; 82803; 83036; 83735; 84443; 85025; 93306; 94640; 94660; 94667; 94668; 94760; 94761; 94762; 96365; 96366; 96367; 96375; 99285-25; 99406; G0378; J0696; J1650; J1815; J1940; J2930; J3370; J7040; J7060

== ENCOUNTER 2021-02-16 18:42 | Emergency (ER) | payer OTHER ==
[~2021-02-16] VITALS: Ht 188 cm; Wt 190.5 kg
[~2021-02-16 18:42] MED LIST changes: +DOXYCYCLINE HY100 MG PO; +MOBIC7.5 MG PO; +NICOTINE1 EAC2 TD; +POTASSIUM CHLO20 ME1 PO
== END 2021-02-16 20:00 | disposition home or self-care (01) ==
LOC: ED 18:42
DX: S91.311A Laceration without foreign body, right foot, initial encounter (principal); Z23 Encounter for immunization; W01.10XA Fall on same level from slipping, tripping and stumbling with subsequent striking against unspecified object, initial encounter; F43.10 Post-traumatic stress disorder, unspecified; G43.909 Migraine, unspecified, not intractable, without status migrainosus; E11.9 Type 2 diabetes mellitus without complications; G47.30 Sleep apnea, unspecified; F17.200 Nicotine dependence, unspecified, uncomplicated; Z88.0 Allergy status to penicillin; Z91.018 Allergy to other foods; Z91.030 Bee allergy status; Z91.012 Allergy to eggs; Z88.8 Allergy status to other drugs, medicaments and biological substances; Z79.899 Other long term (current) drug therapy; Z79.84 Long term (current) use of oral hypoglycemic drugs
CPT/HCPCS: 90471; 90714; 99282-25

== ENCOUNTER 2021-07-22 11:25 | Emergency (ER) | payer OTHER ==
[~2021-07-22] VITALS: Ht 188 cm; Wt 190.5 kg
[2021-07-22] MEDS ORDERED: VENTOLIN HFA18 GM INH (12:59)
[2021-07-22] MEDS ORDERED: PREDNISONE20 MG PO (12:59)
== END 2021-07-22 13:12 | disposition left against medical advice (07) ==
LOC: ED 11:25
DX: G47.33 Obstructive sleep apnea (adult) (pediatric) (principal); R09.02 Hypoxemia; J44.9 Chronic obstructive pulmonary disease, unspecified; F43.10 Post-traumatic stress disorder, unspecified; G40.909 Epilepsy, unspecified, not intractable, without status epilepticus; E11.9 Type 2 diabetes mellitus without complications; G47.30 Sleep apnea, unspecified; F17.200 Nicotine dependence, unspecified, uncomplicated; Z88.0 Allergy status to penicillin; Z91.010 Allergy to peanuts; Z91.030 Bee allergy status; Z88.8 Allergy status to other drugs, medicaments and biological substances; Z79.899 Other long term (current) drug therapy; Z79.84 Long term (current) use of oral hypoglycemic drugs
CPT/HCPCS: 94640; 99284; J7512

== ENCOUNTER 2023-06-09 08:49 | Emergency (ER) | payer OTHER ==
[~2023-06-09] VITALS: Ht 188 cm; Wt 179.8 kg
--- OUTSIDE RECORDS SUMMARY | 2023-06-09 08:57 | XMS ---
PreManage Notification: WESTON CAZARES Security Planning Rn Events No recent Security Events currently on file CRITERIA MET - [facility] PROVIDERS -[place]- Dentist: [employer] Librarian [facility] PHONE: [phone] JOANNA SINGLETARY Physician Director Of Enterprise Strategy Current PHONE: Unknown Ajay has no Care Guidelines for this patient. [place] VISIT COUNT (12 MO.) Shreyas Vivar TOTAL 1 NOTE: Visits indicate total known visits. ED/UCC VISIT TRACKING (12 MO.) 06/09/2023 08:[address] [facility] [place] TYPE: Emergency COMPLAINT: - FLU/COLD SYMPTOMS INPATIENT VISIT TRACKING (12 MO.) No inpatient visits to display in this time frame [email or web address]
[2023-06-09] MEDS ORDERED: GABAPENTIN100 MG (09:12)
[2023-06-09] MEDS ORDERED: IBUPROFEN 800 MG TAB PO ONE (09:15)
[2023-06-09] MEDS ORDERED: ALBUTEROL/IPRATROPIUM 3 ML NEB INH ONE (09:15)
[2023-06-09] MEDS ORDERED: ACETAMINOPHEN 500 MG TAB PO ONE (09:15)
[2023-06-09] MEDS ORDERED: predniSONE 20 MG TAB PO ONE (09:15)
[2023-06-09 10:03] LABS: INFLUENZA B NAA NEGATIVE (NEGATIVE); RESPIRATORY SYNCYTIAL VIR NAA NEGATIVE (NEGATIVE)
[2023-06-09 10:54] VITALS: BP 109/68
== END 2023-06-09 10:54 | disposition home or self-care (01) ==
LOC: ED 08:49
PROVIDERS: Emergency Medicine
DX: J20.8 Acute bronchitis due to other specified organisms (principal); E11.9 Type 2 diabetes mellitus without complications; F17.200 Nicotine dependence, unspecified, uncomplicated; Z91.030 Bee allergy status; Z91.011 Allergy to milk products; Z91.018 Allergy to other foods; Z88.0 Allergy status to penicillin; Z79.899 Other long term (current) drug therapy; Z79.84 Long term (current) use of oral hypoglycemic drugs
CPT/HCPCS: 87502; 94640; 99283-25; A9270; J7512; U0002